=== PATIENT | female | born 1935 ===

== ENCOUNTER 2024-01-04 19:17 | Inpatient (IN) | payer OTHER ==
[2024-01-04] MEDS ORDERED: ALBUTEROL SO4 HFA INHALER IH ONE (20:51)
[2024-01-04] MEDS: ALBUTEROL SO4 HFA INHALER IH ONE (20:56)
[2024-01-04 20:59] LABS: VENOUS BASE EXCESS 2.8 mmol/L (-2-2); VENOUS O2 SATURATION 47.8 % (70-80); VENOUS PCO2 49.4 mmHg (38-52); VENOUS PH 7.38 (7.310-7.410)
[2024-01-04] MEDS ORDERED: CIPROFLOXACIN 0.3% EYE DROPS 5 ML BOTTLE ONE (20:59)
[2024-01-04 21:02] LABS: BASO % 0.4 % (0-2.0); EOS % 0.3 % (0-4.5); HEMATOCRIT 31.2 % (32.4-45.2); HEMOGLOBIN 10.3 GM/dL (10.7-15.3); LYMPH % 6.5 % (8-40); MCH 26.4 pg (25.7-33.7); MCHC 32.9 g/dl (32.0-36.0); MEAN CELL VOLUME 80.2 fl (80-96); MEAN PLT VOLUME 8.3 fl (7.5-11.1); MONO % 10.8 % (3.8-10.2); PLATELET COUNT 278 10^3/uL (134-434); RBC 3.89 M/mm3 (3.60-5.2); RDW 17.7 % (11.6-15.6); WHITE BLOOD COUNT 11.4 K/mm3 (4.0-10.0)
[2024-01-04] MEDS: CIPROFLOXACIN 0.3% EYE DROPS 5 ML BOTTLE OU ONE (21:04)
[2024-01-04 21:14] LABS: POTASSIUM 3.9 mmol/L (3.5-5.1)
[2024-01-04 21:16] LABS: ALBUMIN 3.3 g/dl (3.4-5.0); CALCIUM 8.9 mg/dL (8.5-10.1)
[2024-01-04 21:17] LABS: BLOOD UREA NITROGEN 11.4 mg/dL (7-18)
[2024-01-04 21:20] LABS: CREATININE 0.8 mg/dL (0.55-1.3)
[2024-01-04 21:21] LABS: BILIRUBIN,TOTAL 0.9 mg/dL (0.2-1); TOT PROT 6.8 g/dl (6.4-8.2)
[2024-01-04] MEDS ORDERED: ACETAMINOPHEN INJECTION 100 ML IVPB ONE (22:17)
[2024-01-04] MEDS: ACETAMINOPHEN 1000 MG/100 ML BAG IVPB ONE (22:21)
[2024-01-04] MEDS ORDERED: FUROSEMIDE 40 MG/4 ML INJECTABLE VIAL ONE (23:20)
[2024-01-04] MEDS: FUROSEMIDE 40 MG/4 ML INJECTABLE VIAL IVPUSH ONE (23:23)
[2024-01-04 23:50] LABS: MAGNESIUM 1.6 mg/dL (1.8-2.4)
[2024-01-04 23:54] LABS: PHOSPHOROUS 2.6 mg/dL (2.5-4.9)
[2024-01-05] MEDS ORDERED: ALPRAZolam 0.25 MG TABLET PO PRN (06:27)
[2024-01-05 06:50] LABS: BASO % 0.4 % (0-2.0); EOS % 0.7 % (0-4.5); HEMATOCRIT 31.2 % (32.4-45.2); HEMOGLOBIN 10.5 GM/dL (10.7-15.3); LYMPH % 6.5 % (8-40); MCH 26.9 pg (25.7-33.7); MCHC 33.5 g/dl (32.0-36.0); MEAN CELL VOLUME 80.2 fl (80-96); MEAN PLT VOLUME 8.5 fl (7.5-11.1); MONO % 11.1 % (3.8-10.2); NEUT % 81.3 % (42.8-82.8); PLATELET COUNT 278 10^3/uL (134-434); RBC 3.89 M/mm3 (3.60-5.2); RDW 17.3 % (11.6-15.6); WHITE BLOOD COUNT 10.8 K/mm3 (4.0-10.0)
[2024-01-05 07:00] LABS: POTASSIUM 3.3 mmol/L (3.5-5.1)
[2024-01-05 07:01] LABS: CALCIUM 8.7 mg/dL (8.5-10.1)
[2024-01-05 07:02] LABS: BLOOD UREA NITROGEN 8.6 mg/dL (7-18)
[2024-01-05 07:05] LABS: CREATININE 0.6 mg/dL (0.55-1.3)
[2024-01-05] MEDS: ACETAMINOPHEN 325 MG TABLET (FP) PO PRN (07:55)
[2024-01-05] MEDS: ALBUTEROL SO4 0.083% IH SOL 2.5 MG/3 ML VIAL.NEB. NEB PRN (08:25)
[2024-01-05] MEDS: CLOPIDOGREL BISULFATE 75 MG TABLET (FP) PO SCH (09:10)
[2024-01-05] MEDS: ASPIRIN 81 MG CHEWABLE TABLETS PO SCH (09:10)
[2024-01-05] MEDS: POTASSIUM CHLORIDE TABS 20 MEQ TABLET.ER (FP) PO ONE (09:10)
[2024-01-05] MEDS: metoPROLOL SUCCINATE 25 MG TAB.SR.24H (FP) PO SCH (09:10)
[2024-01-05] MEDS: ESCITALOPRAM OXALATE 10 MG TABLET PO SCH (09:11)
[2024-01-05] MEDS: OFLOXACIN 0.3% OPHTHALMIC SOLUTION 5 ML BOTTLE OU SCH (10:49)
[2024-01-05] MEDS: CLOTRIMAZOLE 1% CREAM TP SCH (10:50)
[2024-01-05] MEDS: FLUTICASONE/SALMETEROL (WIXELA) 100 MCG/50 MCG DISKUS IH SCH (13:55)
[2024-01-05] MEDS: AZITHROMYCIN IVPB 500 MG/250 ML BAG IVPB SCH (13:56)
[2024-01-05 15:43] VITALS: BMI 31.1
[2024-01-05] MEDS: methylPREDNISolone NA SUCC 40 MG/1 ML VIAL IVPUSH SCH (15:53)
[2024-01-05] MEDS: ALBUTEROL SO4 2.5/IPRATROPIUM 0.5 INH SOL 3 ML VIAL.NEB. NEB SCH (16:02)
[2024-01-05] MEDS: ATORVASTATIN CA 20 MG TABLET (FP) PO SCH (21:41)
[2024-01-05] MEDS: MELATONIN 5 MG TABLETS PO SCH (21:41)
[2024-01-05] MEDS: ALPRAZolam 0.25 MG TABLET PO SCH (21:41)
[2024-01-05] MEDS: GABAPENTIN 300 MG CAPSULE PO SCH (21:41)
[2024-01-05] MEDS: SENNOSIDES 8.6MG TABLET (FP) PO PRN (22:26)
[2024-01-06 15:55] LABS: BASO % 0.2 % (0-2.0); HEMATOCRIT 31.8 % (32.4-45.2); HEMOGLOBIN 10.2 GM/dL (10.7-15.3); LYMPH % 3.2 % (8-40); MCH 25.9 pg (25.7-33.7); MCHC 32.2 g/dl (32.0-36.0); MEAN CELL VOLUME 80.7 fl (80-96); MEAN PLT VOLUME 8.7 fl (7.5-11.1); NEUT % 87.6 % (42.8-82.8); PLATELET COUNT 348 10^3/uL (134-434); RBC 3.95 M/mm3 (3.60-5.2); RDW 17.5 % (11.6-15.6); WHITE BLOOD COUNT 12.1 K/mm3 (4.0-10.0)
[2024-01-06 16:23] LABS: POTASSIUM 3.9 mmol/L (3.5-5.1)
[2024-01-06 16:25] LABS: CALCIUM 9.4 mg/dL (8.5-10.1)
[2024-01-06 16:26] LABS: BLOOD UREA NITROGEN 23.3 mg/dL (7-18)
[2024-01-06 16:29] LABS: CREATININE 0.9 mg/dL (0.55-1.3)
[2024-01-06 16:30] LABS: BILIRUBIN,TOTAL 0.6 mg/dL (0.2-1)
[2024-01-06 16:31] LABS: TOT PROT 6.6 g/dl (6.4-8.2)
[2024-01-06] MEDS ORDERED: ALPRAZolam 0.25 MG TABLET PO PRN (18:42)
[2024-01-06] MEDS ORDERED: ALBUTEROL SO4 0.083% IH SOL 2.5 MG/3 ML VIAL.NEB. NEB PRN (18:42)
[2024-01-06] MEDS: ALBUTEROL SO4 2.5/IPRATROPIUM 0.5 INH SOL 3 ML VIAL.NEB. NEB SCH (20:27)
[2024-01-06] MEDS: ATORVASTATIN CA 20 MG TABLET (FP) PO SCH (22:28)
[2024-01-06] MEDS: GABAPENTIN 300 MG CAPSULE PO SCH (22:28)
[2024-01-06] MEDS: ALPRAZolam 0.25 MG TABLET PO SCH (22:28)
[2024-01-06] MEDS: MELATONIN 5 MG TABLETS PO SCH (22:28)
[2024-01-06] MEDS: OFLOXACIN 0.3% OPHTHALMIC SOLUTION 5 ML BOTTLE OU SCH (22:49)
[2024-01-06] MEDS: CLOTRIMAZOLE 1% CREAM TP SCH (22:52)
[2024-01-07] MEDS: methylPREDNISolone NA SUCC 40 MG/1 ML VIAL IVPUSH SCH (02:04)
[2024-01-07] MEDS: ACETAMINOPHEN 325 MG TABLET (FP) PO PRN (06:27)
[2024-01-07 08:58] LABS: BASO % 0.2 % (0-2.0); HEMATOCRIT 32.3 % (32.4-45.2); HEMOGLOBIN 10.5 GM/dL (10.7-15.3); LYMPH % 5.1 % (8-40); MCH 26.1 pg (25.7-33.7); MCHC 32.5 g/dl (32.0-36.0); MEAN CELL VOLUME 80.3 fl (80-96); MEAN PLT VOLUME 8.6 fl (7.5-11.1); MONO % 4.6 % (3.8-10.2); NEUT % 90.1 % (42.8-82.8); PLATELET COUNT 368 10^3/uL (134-434); RBC 4.03 M/mm3 (3.60-5.2); WHITE BLOOD COUNT 11.6 K/mm3 (4.0-10.0)
[2024-01-07 09:16] LABS: POTASSIUM 4.8 mmol/L (3.5-5.1)
[2024-01-07 09:18] LABS: CALCIUM 9.5 mg/dL (8.5-10.1)
[2024-01-07 09:19] LABS: ALBUMIN 2.9 g/dl (3.4-5.0); BLOOD UREA NITROGEN 35.4 mg/dL (7-18)
[2024-01-07 09:21] LABS: CREATININE 0.8 mg/dL (0.55-1.3)
[2024-01-07 09:23] LABS: BILIRUBIN,TOTAL 0.4 mg/dL (0.2-1); TOT PROT 6.6 g/dl (6.4-8.2)
[2024-01-07] MEDS: ESCITALOPRAM OXALATE 10 MG TABLET PO SCH (09:52)
[2024-01-07] MEDS: ASPIRIN 81 MG CHEWABLE TABLETS PO SCH (09:52)
[2024-01-07] MEDS: metoPROLOL SUCCINATE 25 MG TAB.SR.24H (FP) PO SCH (09:52)
[2024-01-07] MEDS: CLOPIDOGREL BISULFATE 75 MG TABLET (FP) PO SCH (09:52)
[2024-01-07] MEDS: AZITHROMYCIN IVPB 500 MG/250 ML BAG IVPB SCH (11:03)
[2024-01-07] MEDS ORDERED: predniSONE 20 MG TABLET (UD) PO ONE (12:37)
[2024-01-07] MEDS: predniSONE 20 MG TABLET (UD) PO SCH (13:10)
[2024-01-08 08:50] LABS: BASO % 0.3 % (0-2.0); HEMATOCRIT 32.4 % (32.4-45.2); HEMOGLOBIN 10.5 GM/dL (10.7-15.3); LYMPH % 7.1 % (8-40); MCHC 32.5 g/dl (32.0-36.0); MEAN CELL VOLUME 79.9 fl (80-96); MEAN PLT VOLUME 8.6 fl (7.5-11.1); MONO % 9.6 % (3.8-10.2); PLATELET COUNT 393 10^3/uL (134-434); RBC 4.05 M/mm3 (3.60-5.2); RDW 17.1 % (11.6-15.6); WHITE BLOOD COUNT 14.6 K/mm3 (4.0-10.0)
[2024-01-08 09:02] LABS: POTASSIUM 4.5 mmol/L (3.5-5.1)
[2024-01-08 09:03] LABS: CALCIUM 9.4 mg/dL (8.5-10.1)
[2024-01-08 09:04] LABS: ALBUMIN 2.8 g/dl (3.4-5.0); BLOOD UREA NITROGEN 29.4 mg/dL (7-18)
[2024-01-08 09:07] LABS: CREATININE 0.6 mg/dL (0.55-1.3)
[2024-01-08 09:08] LABS: BILIRUBIN,TOTAL 0.4 mg/dL (0.2-1); TOT PROT 6.2 g/dl (6.4-8.2)
[2024-01-08] MEDS: BENZOCAINE/MENTH/CETYLPYRD CL 1 EACH LOZENGE MM PRN (15:22)
[2024-01-08] MEDS: SENNOSIDES 8.6MG TABLET (FP) PO PRN (21:39)
[2024-01-09 09:50] LABS: HEMATOCRIT 32.6 % (32.4-45.2); HEMOGLOBIN 10.5 GM/dL (10.7-15.3); MCH 25.9 pg (25.7-33.7); MCHC 32.2 g/dl (32.0-36.0); MEAN CELL VOLUME 80.5 fl (80-96); MEAN PLT VOLUME 8.6 fl (7.5-11.1); PLATELET COUNT 388 10^3/uL (134-434); RBC 4.05 M/mm3 (3.60-5.2); RDW 17.4 % (11.6-15.6); WHITE BLOOD COUNT 13.1 K/mm3 (4.0-10.0)
[2024-01-09 10:07] LABS: POTASSIUM 3.7 mmol/L (3.5-5.1)
[2024-01-09 10:09] LABS: CALCIUM 9.1 mg/dL (8.5-10.1)
[2024-01-09 10:10] LABS: BLOOD UREA NITROGEN 25.7 mg/dL (7-18)
[2024-01-09 10:13] LABS: CREATININE 0.7 mg/dL (0.55-1.3)
[2024-01-09 12:20] LABS: ANISOCYTOSIS 0; HELMET CELLS 0; HOWELL-JOLLY BODIES 0; MACROCYTOSIS 0; OVALOCYTE 0; ROULEAU 0; SICKELED CELLS 0; TARGET CELLS 0; TEAR DROP CELLS 0; TOXIC GRANULATION 0
[2024-01-09] MEDS: PANTOPRAZOLE 20 MG TABLET PO SCH (13:49)
[2024-01-10] MEDS: predniSONE 20 MG TABLET (UD) PO SCH (09:14)
[2024-01-10 09:16] LABS: HEMATOCRIT 32.9 % (32.4-45.2); HEMOGLOBIN 10.6 GM/dL (10.7-15.3); MCH 25.7 pg (25.7-33.7); MCHC 32.2 g/dl (32.0-36.0); MEAN CELL VOLUME 79.9 fl (80-96); MEAN PLT VOLUME 8.5 fl (7.5-11.1); PLATELET COUNT 411 10^3/uL (134-434); RBC 4.12 M/mm3 (3.60-5.2); RDW 17.5 % (11.6-15.6); WHITE BLOOD COUNT 14.7 K/mm3 (4.0-10.0)
[2024-01-10 09:44] LABS: POTASSIUM 3.8 mmol/L (3.5-5.1)
[2024-01-10 09:52] LABS: CALCIUM 8.8 mg/dL (8.5-10.1)
[2024-01-10 09:53] LABS: BLOOD UREA NITROGEN 21.9 mg/dL (7-18)
[2024-01-10 09:56] LABS: CREATININE 0.6 mg/dL (0.55-1.3)
[2024-01-10 09:57] LABS: ANISOCYTOSIS 0; HELMET CELLS 0; HOWELL-JOLLY BODIES 0; MACROCYTOSIS 0; OVALOCYTE 0; ROULEAU 0; SICKELED CELLS 0; TARGET CELLS 0; TEAR DROP CELLS 0; TOXIC GRANULATION 0
[2024-01-10] MEDS: FUROSEMIDE 40 MG TABLET (FP) PO ONE (14:37)
[2024-01-11] MEDS: predniSONE 20 MG TABLET (UD) PO SCH (09:01)
[2024-01-11 09:04] LABS: HEMATOCRIT 31.6 % (32.4-45.2); HEMOGLOBIN 10.3 GM/dL (10.7-15.3); MCH 26.4 pg (25.7-33.7); MCHC 32.8 g/dl (32.0-36.0); MEAN CELL VOLUME 80.4 fl (80-96); MEAN PLT VOLUME 8.7 fl (7.5-11.1); PLATELET COUNT 419 10^3/uL (134-434); RBC 3.92 M/mm3 (3.60-5.2); RDW 17.2 % (11.6-15.6); WHITE BLOOD COUNT 16.1 K/mm3 (4.0-10.0)
[2024-01-11 09:46] LABS: ANISOCYTOSIS 2+; MACROCYTOSIS 0
[2024-01-11 09:59] LABS: CALCIUM 8.8 mg/dL (8.5-10.1)
[2024-01-11 10:00] LABS: CREATININE 0.6 mg/dL (0.55-1.3)
[2024-01-12 10:51] LABS: HEMOGLOBIN 10.8 GM/dL (10.7-15.3); MCH 25.3 pg (25.7-33.7); MCHC 31.6 g/dl (32.0-36.0); MEAN PLT VOLUME 8.3 fl (7.5-11.1); PLATELET COUNT 417 10^3/uL (134-434); RBC 4.26 M/mm3 (3.60-5.2); RDW 17.3 % (11.6-15.6); WHITE BLOOD COUNT 14.7 K/mm3 (4.0-10.0)
[2024-01-12 11:14] LABS: POTASSIUM 4.3 mmol/L (3.5-5.1)
[2024-01-12 11:23] LABS: CREATININE 0.6 mg/dL (0.55-1.3)
[2024-01-12 11:28] LABS: ANISOCYTOSIS 2+; MACROCYTOSIS 0; OVALOCYTE 1+
[2024-01-12 15:33] VITALS: RESP 20
[2024-01-13] MEDS: DOCUSATE SODIUM 100 MG CAPSULE (FP) PO SCH (15:14)
[2024-01-15 08:23] LABS: BASO % 0.6 % (0-2.0); EOS % 0.9 % (0-4.5); HEMATOCRIT 33.3 % (32.4-45.2); HEMOGLOBIN 10.6 GM/dL (10.7-15.3); MCH 25.6 pg (25.7-33.7); MEAN CELL VOLUME 80.2 fl (80-96); MEAN PLT VOLUME 8.5 fl (7.5-11.1); MONO % 5.4 % (3.8-10.2); NEUT % 78.1 % (42.8-82.8); PLATELET COUNT 382 10^3/uL (134-434); RBC 4.15 M/mm3 (3.60-5.2); RDW 17.4 % (11.6-15.6); WHITE BLOOD COUNT 16.3 K/mm3 (4.0-10.0)
[2024-01-15 08:29] LABS: POTASSIUM 3.8 mmol/L (3.5-5.1)
[2024-01-15 08:43] LABS: CALCIUM 8.7 mg/dL (8.5-10.1)
[2024-01-15 08:47] LABS: CREATININE 0.6 mg/dL (0.55-1.3)
[2024-01-15] MEDS: predniSONE 10 MG TABLET (UD) PO SCH (09:52)
[2024-01-15] MEDS ORDERED: ALBUTEROL SO4 HFA INHALER IH PRN (10:50)
[2024-01-15] MEDS: FLUTICASONE/SALMETEROL (WIXELA) 100 MCG/50 MCG DISKUS IH SCH (12:00)
[2024-01-15 13:41] VITALS: BP 105/65; PULSE 68; TEMP 98.8
== END 2024-01-15 17:00 | disposition home or self-care (01) | DRG 203 ==
LOC: JER 19:17 → JERBED 21:45 → J4W 01-05 07:27 → J6S 01-06 18:39
PROVIDERS: ADMIT Internal Medicine; ATTEND Internal Medicine
DX: J20.9 Acute bronchitis, unspecified (principal); J45.40 Moderate persistent asthma, uncomplicated; E78.5 Hyperlipidemia, unspecified; F32.9 Major depressive disorder, single episode, unspecified; H10.89 Other conjunctivitis; D64.9 Anemia, unspecified; E87.6 Hypokalemia; I10 Essential (primary) hypertension
CPT/HCPCS: 0241U-QW; 36415; 70450-TC; 71045-TC-FY; 71250-TC; 80048; 80053; 82803; 83735; 83880; 84100; 84484; 85025; 87633; 87635; 87899; 93005; 93010; 93970-TC; 94640; 94761; 97116-GP; 97162-GP; 99285-25; J0131